=== PATIENT | male | born 1935 | race Caucasian/White ===

== ENCOUNTER → 2017-07-08 | Outpatient (CLI) | payer MEDICARE, BC ==
[~2017-07-08] MED LIST: ALBUTEROL SULFAT3 M3 IH; ALDACTONE50 MG PO; ATROVENT INHALE14 GM IH; BROVANA15 MCG/2 M IH; BUDESONIDE0.25 MG/2 IH; COMBIRESP IH; COMBIVENT INH14.7 GM IH; DALIRESP PO; DALIRESP500 MCG PO; FORADIL AERO0.012 MG IH; PULMICORT0.25 MG/2 IH; PULMICORT0.5 MG/2 M IH; RT ALBUTER2.5 MG/0.5 IH; SPIRIVA HANDIH18 MCG IH; SPIRIVA18 MCG IH; THEO-DUR 3300 MG/TAB PO; THEOPHYLLINE E300 MG PO; THEOPHYLLINE300 M1 PO; [UNRECOGNIZED DRUG - OTHER]
== END ==
LOC: COL.RAD 10:38
DX: I77.810 Thoracic aortic ectasia (principal); J43.9 Emphysema, unspecified; J98.11 Atelectasis; N20.1 Calculus of ureter; I71.4 Abdominal aortic aneurysm, without rupture
CPT/HCPCS: Q9967

== ENCOUNTER → 2018-07-06 | Outpatient (CLI) | payer MEDICARE, BC | LOC: COL.RAD 10:18 | DX: I77.810 Thoracic aortic ectasia (principal); I28.8 Other diseases of pulmonary vessels; J44.9 Chronic obstructive pulmonary disease, unspecified; J98.09 Other diseases of bronchus, not elsewhere classified; N28.1 Cyst of kidney, acquired; K76.9 Liver disease, unspecified; I70.8 Atherosclerosis of other arteries; K57.30 Diverticulosis of large intestine without perforation or abscess without bleeding; Z86.79 Personal history of other diseases of the circulatory system | CPT/HCPCS: Q9967 ==

== ENCOUNTER → 2019-07-07 | Outpatient (CLI) | payer MEDICARE, BC | LOC: COL.RAD 10:31 | DX: Z01.812 Encounter for preprocedural laboratory examination (principal); I71.2 Thoracic aortic aneurysm, without rupture; I28.8 Other diseases of pulmonary vessels; N28.1 Cyst of kidney, acquired | CPT/HCPCS: Q9967 ==

== ENCOUNTER → 2020-07-11 | Outpatient (CLI) | payer MEDICARE, BC | LOC: COL.RAD 07:02 | DX: Z13.6 Encounter for screening for cardiovascular disorders (principal); I77.819 Aortic ectasia, unspecified site | CPT/HCPCS: Q9967 ==

== ENCOUNTER → 2021-07-15 | Outpatient (CLI) | payer MEDICARE, BC | LOC: COL.RAD 11:52 | DX: Z01.812 Encounter for preprocedural laboratory examination (principal); Z13.6 Encounter for screening for cardiovascular disorders; Z90.49 Acquired absence of other specified parts of digestive tract; I25.10 Atherosclerotic heart disease of native coronary artery without angina pectoris; J43.9 Emphysema, unspecified; I77.810 Thoracic aortic ectasia | CPT/HCPCS: Q9967 ==

== ENCOUNTER 2022-05-12 07:05 | Inpatient (IN) | payer MEDICARE, BC ==
[~2022-05-12] VITALS: Ht 177.8 cm; Wt 90.9 kg
[2022-05-22] VITALS (7 sets, daily range): BP systolic 105–127; BP diastolic 69–74; PULSE 60–72; TEMP 98.1–98.7
[2022-05-22] MEDS ORDERED: TYLENOL 325MG325 MG PO (09:02)
[2022-05-22] MEDS ORDERED: PROAIR DIGIHAL90 MCG IH (09:03)
[2022-05-22] MEDS ORDERED: TIAZAC360 MG PO (09:04)
[2022-05-22] MEDS ORDERED: MAGOX250 PO (09:05)
[2022-05-22] MEDS ORDERED: PRAVACHOL 20MG20 MG PO (09:05)
[2022-05-22] MEDS ORDERED: YUPELRI175 MCG/3 IH (09:06)
[2022-05-22] MEDS ORDERED: XARELTO20 MG PO (09:07)
[2022-05-22 10:11] LABS: BASO # 0.1 K/mm3 (0.0-0.2); BASO % 0.9 % (0.0-2.0); EOS # 0.1 K/mm3 (0.0-0.7); EOS % 1.7 % (0.0-4.0); GRAN # 6.1 K/mm3 (1.4-6.5); GRAN % 79.2 % (42.2-75.2); HEMATOCRIT 42.3 % (42.0-52.0); HEMOGLOBIN 14.3 g/dl (13.5-18.0); LYMPH # 0.7 K/mm3 (1.2-3.4); MEAN CELL VOLUME 85 fl (80.0-100.0); MEAN CORPUSCULAR HEMOGLOBIN 29 pg (27-31); MEAN CORPUSCULAR HGB CONC 34 g/dl (33.0-37.0); MEAN PLATELET VOLUME 10.7 fl (7.4-10.4); MONO # 0.7 K/mm3 (0.1-0.6); MONO % 8.9 % (1.7-9.3); PLATELET COUNT 249 K/mm3 (130-400); REDCELL DISTRIBUTION WIDTH-CV 13.7 % (11.5-14.5)
[2022-05-22 10:13] LABS: INR 1.6 (0.8-3.0)
[2022-05-22 10:21] LABS: ALBUMIN 3.5 gm/dL (3.4-4.8); BILIRUBIN,TOTAL 0.6 mg/dL (0.2-1.2); CALCIUM 9.7 mg/dL (8.4-10.2); CREATININE, serum 1.16 mg/dL (0.72-1.25); MAGNESIUM 1.9 mg/dL (1.6-2.6); POTASSIUM 4.3 mmol/L (3.5-4.5); TOTAL PROTEIN 7.1 gm/dL (6.2-8.1)
--- NOTE | 2022-05-22 11:15 | NUR ---
Pt left for procedure at this time.
--- NOTE | 2022-05-22 18:47 | NUR ---
Pt remained in NSR following CV. Denies chest pain, or palpitations. Ambulates in room without difficulty. POC discussed with patient and his family. No needs at this time. Call light within reach.
--- NOTE | 2022-05-22 20:39 | NUR ---
Patient assessed around 2019. Denies pain and discomfort. Telemetry in place: normal sinus. Continues on Sotalol per orders. On oxygen at 2 L/min via [facility] for patient. Voices no questions, needs, or concerns at this time. In bed with call light within reach.
[2022-05-23 04:03] VITALS: BP 128/74; PULSE 58; TEMP 97.3
--- NOTE | 2022-05-23 05:43 | NUR ---
Telemetry showing sinus meseret this shift. QTC this morning 442. Voices no questions, needs, or concerns at this time. In bed with call light within reach.
[2022-05-23 06:08] LABS: BASO # 0.1 K/mm3 (0.0-0.2); BASO % 1.1 % (0.0-2.0); EOS # 0.1 K/mm3 (0.0-0.7); EOS % 1.5 % (0.0-4.0); GRAN # 5.4 K/mm3 (1.4-6.5); GRAN % 74.6 % (42.2-75.2); HEMATOCRIT 38.7 % (42.0-52.0); HEMOGLOBIN 12.8 g/dl (13.5-18.0); LYMPH # 0.8 K/mm3 (1.2-3.4); LYMPH % 11.4 % (20.0-51.0); MEAN CELL VOLUME 85 fl (80.0-100.0); MEAN CORPUSCULAR HEMOGLOBIN 28 pg (27-31); MEAN CORPUSCULAR HGB CONC 33 g/dl (33.0-37.0); MEAN PLATELET VOLUME 10.6 fl (7.4-10.4); MONO # 0.8 K/mm3 (0.1-0.6); PLATELET COUNT 230 K/mm3 (130-400); RED BLOOD COUNT 4.54 M/mm3 (4.20-5.60); REDCELL DISTRIBUTION WIDTH-CV 13.6 % (11.5-14.5)
[2022-05-23 06:23] LABS: INR 1.8 (0.8-3.0); PROTHROMBIN TIME 20.3 SECONDS (9.7-12.8)
[2022-05-23 06:25] LABS: CALCIUM 8.9 mg/dL (8.4-10.2); CREATININE, serum 1.32 mg/dL (0.72-1.25); MAGNESIUM 1.9 mg/dL (1.6-2.6); POTASSIUM 4.6 mmol/L (3.5-4.5)
[2022-05-23 07:27] VITALS: BP 110/63; PULSE 58; TEMP 97.7
--- NOTE | 2022-05-23 09:00 | NUR ---
VSS, PT A&O X4, PT ABLE TO MAKE NEEDS KNOWN, PT RESTING IN BED, DENIES PAIN, FALL PRECAUTIONS IN PLACE, CALL LIGHT IN REACH
--- NOTE | 2022-05-23 10:44 | NUR ---
Lily: [facility] Situation: Attendant Child Activity stopped by on rounds Background: PT was resting and content with daughter in the room Assessment: Pt has no needs right now, appreciated the visit Recommendation: Attendant Child Activity will follow up as needed
[2022-05-23 11:35] VITALS: BP 116/65; PULSE 62; TEMP 98
--- NOTE | 2022-05-23 15:26 | NUR ---
[employer] met with patient to discuss discharge planning. Patient lives with his , Stephanie in [place] and sees Dr. Judge for primary care. Patient obtains medications from [facility] with no difficulties. Patient uses home oxygen through [employer] and also has a CPAP and nebulizer. Patient uses no DME for ambulation and is independent with ADLS. Patient advised his , Stephanie and daughter, Emperatriz are DPOA-HC. Patient plans to return home at time of discharge.
[2022-05-23 15:29] VITALS: BP 115/62; PULSE 58; TEMP 97.9
--- NOTE | 2022-05-23 19:33 | NUR ---
PATIENT RESTING COMFORTABLY IN BED WATCHING TELEVISION AT THIS TIME. PATIENT DENIES ANY NEEDS AND OR CONCERNS. PATIENT HAS CALL LIGHT WITHIN REACH AND THIS NURSE ENCOURAGES PATIENT TO CALL WITH ANY QUESTIONS OR CONCERNS.
[2022-05-23 19:36] VITALS: BP 111/72; PULSE 54; TEMP 98.2
[2022-05-24 00:05] VITALS: BP 98/63; PULSE 61; TEMP 98.1
[2022-05-24 04:42] VITALS: BP 118/67; PULSE 56; TEMP 97.6
--- NOTE | 2022-05-24 05:50 | NUR ---
Patient is sleeping in bed with eyes closed and not signs or symptoms of any concerns or issues. Call light is within reach of patient. Patient encouraged to call with any needs or concerns.
[2022-05-24 06:07] LABS: BASO # 0.1 K/mm3 (0.0-0.2); BASO % 1.3 % (0.0-2.0); EOS # 0.1 K/mm3 (0.0-0.7); EOS % 1.9 % (0.0-4.0); GRAN # 5.1 K/mm3 (1.4-6.5); HEMOGLOBIN 12.3 g/dl (13.5-18.0); LYMPH # 0.9 K/mm3 (1.2-3.4); LYMPH % 12.1 % (20.0-51.0); MEAN CELL VOLUME 85 fl (80.0-100.0); MEAN CORPUSCULAR HEMOGLOBIN 29 pg (27-31); MEAN CORPUSCULAR HGB CONC 34 g/dl (33.0-37.0); MEAN PLATELET VOLUME 10.6 fl (7.4-10.4); MONO # 0.8 K/mm3 (0.1-0.6); MONO % 11.4 % (1.7-9.3); PLATELET COUNT 203 K/mm3 (130-400); PROTHROMBIN TIME 22.7 SECONDS (9.7-12.8); REDCELL DISTRIBUTION WIDTH-CV 13.4 % (11.5-14.5)
[2022-05-24 06:36] LABS: HEMATOCRIT 36.5 % (42.0-52.0)
[2022-05-24 06:37] LABS: CALCIUM 8.8 mg/dL (8.4-10.2); CREATININE, serum 1.3 mg/dL (0.72-1.25); MAGNESIUM 2.1 mg/dL (1.6-2.6); POTASSIUM 4.5 mmol/L (3.5-4.5)
--- NOTE | 2022-05-24 07:39 | NUR ---
VSS, PT A&O X4, PT ABLE TO MAKE NEEDS KNOWN, DENIES PAIN, FALL PRECUATIONS IN PLACE
[2022-05-24 07:44] VITALS: BP 106/69; PULSE 50; TEMP 98.1
[2022-05-24] MEDS ORDERED: BETAPACE 80MG80 MG PO (08:10)
--- NOTE | 2022-05-24 09:46 | NUR ---
PT DISMISSED TO HOME TODAY, IV DC'D, PT EDUCATED ON DISMISSAL INSTRUCTIONS/MEDICATION INSTRUCTIONS/FOLLOW UP INSTRUCTIONS, PT VOICED NO QUESTIONS/CONCERNS AT TIME OF DISMISSAL, PT AMBULATED TO EXIT, NO FURTHER CONCERNS
== END 2022-05-24 09:51 | disposition home or self-care (01) | DRG 310 ==
LOC: MEDICAL 05-22 07:04
PROVIDERS: ADMIT Internal Medicine Cardiovascular Disease
PROC: 5A2204Z Restoration of Cardiac Rhythm, Single (ICD-10-PCS; principal; 2022-05-22)
DX: I48.0 Paroxysmal atrial fibrillation (principal); G47.33 Obstructive sleep apnea (adult) (pediatric); E78.5 Hyperlipidemia, unspecified; J44.9 Chronic obstructive pulmonary disease, unspecified; I44.0 Atrioventricular block, first degree; I45.10 Unspecified right bundle-branch block; I49.1 Atrial premature depolarization; Z86.718 Personal history of other venous thrombosis and embolism; Z86.711 Personal history of pulmonary embolism; Z99.81 Dependence on supplemental oxygen; Z85.828 Personal history of other malignant neoplasm of skin
CPT/HCPCS: J2704; J3475

== ENCOUNTER → 2022-06-16 | Outpatient (CLI) | payer MEDICARE, BC ==
[~2022-06-16] VITALS: Ht 177.8 cm; Wt 98.9 kg
[~2022-06-16] MED LIST changes: +BETAPACE 120MG120 MG PO; +BETAPACE 80MG80 MG PO; +MAGOX250 PO; +PRAVACHOL 20MG20 MG PO; +PROAIR DIGIHAL90 MCG IH; +TIAZAC360 MG PO; +TYLENOL 325MG325 MG PO; +XARELTO20 MG PO; +YUPELRI175 MCG/3 IH
[2022-06-16 07:51] VITALS: BP 121/60; PULSE 44; TEMP 98.1
[2022-06-16 09:10] VITALS: BP 119/69; PULSE 74
[2022-06-17 01:25] LABS: BODY FLUID PH (AMS) 8 (())
== END ==
LOC: COL.RAD 07:09
PROVIDERS: Physician Assistant
DX: J90 Pleural effusion, not elsewhere classified (principal)
CPT/HCPCS: 19804

== ENCOUNTER → 2023-08-07 | Outpatient (CLI) | payer MEDICARE, BC ==
[~2023-08-07] MED LIST changes: +CEFTIN500 MG PO
== END ==
LOC: COL.RAD 07:17
DX: J90 Pleural effusion, not elsewhere classified (principal); I37.0 Nonrheumatic pulmonary valve stenosis